=== PATIENT | female | born 2000 | race Caucasian/White ===

== ENCOUNTER 2024-12-29 22:00 | Emergency (ER) | payer BC, SELFPAY ==
[2024-12-29 22:05] VITALS: BP 113/70
[2024-12-29 22:42] LABS: Hematocrit 30.4 % (37.0-47.0); Hemoglobin 9.4 g/dL (12.0-16.0); Mean Corp Hgb Conc. 30.9 g/dL (33.0-37.0); Mean Corpuscular Volume 77.6 fL (81.0-99.0); Nucleated Red Blood Cells % 0 %; Platelet Count 311 10^3/uL (130-400); Red Cell Dist. Width 17.7 % (11.5-14.5)
[2024-12-29 23:02] LABS: Urine Character Slightly Cloudy (Clear)
[2024-12-29 23:15] LABS: ALT (SGPT) 13 U/L (0-35); AST (SGOT) 20 U/L (14-36); Albumin 4.1 g/dl (3.5-5.0); Alkaline Phosphatase 44 U/L (38-126); Blood Urea Nitrogen 15 mg/dl (7-17); Calcium 9.0 mg/dl (8.4-10.2); Carbon Dioxide 30 mmol/L (22-30); Chloride 108 mmol/L (98-107); Glucose 80 mg/dl (70-99); Lipase 183 U/L (23-300); Potassium 4.6 mmol/L (3.5-5.1); Sodium 140 mmol/L (135-145); Total Protein 7.0 g/dl (6.3-8.2); eGFR > 60.00
[2024-12-30 01:13] LABS: HCG, Serum Qualitative Screen Negative
--- NOTE | 2024-12-30 01:32 | ED.GENMED ---
History of Present Illness
General
Chief Complaint: Abdominal Pain
Source: patient
Exam Limitations: none
Time Seen by Provider: 12/30/24 00:50
Nursing documentation reviewed up to this point in time: agreed with
History of Present Illness
History of Present Illness:
This is a 24-year-old female with history of presumed iron deficiency anemia. She presents with frequent epigastric abdominal pain that is worse with fasting state. Temporized with meals and temporized with [place].
Epigastric abdominal pain began this morning, mildly improved with meals but then returned and was not improved with a dose of [place], not improved with Pepto-Bismol. She is also noted some periumbilical abdominal pain today that has been
persistent throughout the day, somewhat worse tonight but now seems mildly improved. No prior history of similar periumbilical pain. She denies back pain or flank pain. No fever no chills.
She admits to mild nausea today but has had no vomiting. Normal bowel movement yesterday. Denies diarrhea. Denies black or tarry stools. Denies bloody stools.
She admits to moderate caffeine consumption. Denies alcohol use. Denies NSAID or aspirin use.
Last menstrual period 2 to 3 weeks ago, normal and on time. Admits to moderately heavy menstrual flow the first 3 days, menstrual period generally resolves within 5 to 6 days.
She admits to occasional dysuria, denies frequency nor urgency nor hematuria.
Her only medication is [id number]-jzldlfp iron which she admits she is frequently noncompliant with.
Past History
Past History
ED Past Medical History: Other (Anemia, presumed iron deficiency.)
ED Past Surgical History: None
Social History
Tobacco: Non-smoker
Alcohol: None
Drug: None
Personal: Single
Living: with family
Employment: Not employed
Family History
Family History: Other (Noncontributory)
Phy Exam
Physical Exam
Physical Exam:
GENERAL: 24-year-old female appears her stated age, bright and alert, pleasant, appears in no acute distress. Father is accompanying.
EYE: pupils equal and reactive. anicteric
NECK: Supple, nontender, no meningismus, no significant adenopathy.
ENT: oral mucosa is moist. No rhinorrhea.
CARDIAC: Regular rate and rhythm. no murmur.
LUNGS: Clear breath sounds bilaterally, no acute respiratory distress, no wheezes/rales/rhonchi
ABDOMEN: Soft, nondistended, minimal tenderness with deep palpation only to the epigastric region, mild to moderate tenderness periumbilical region. No r/g, no cvat. normoactive BS. No palpable masses.
NEUROLOGICAL: Alert and oriented x3, no focal neuro deficits. Gait is parker and steady.
SKIN: Warm and dry, normal color, skin intact. No rash.
MUSCULOSKELETAL: No C/C/E. peripheral pulses are full and equal b/l. No palpable tenderness.
PSYCH: Normal and appropriate interaction.
Course
Orders/Labs/Results
Orders:
Orders
12/29/24 22:23
Complete Blood Count/With Diff Urgent
Comprehensive Metabolic Panel Urgent
HCG, Serum Qualitative Screen Urgent
Comment: ADD ON
Lipase Urgent
Urine Reflex Culture from [facility] [Urinalysis Reflex To Culture] Urgent
Date Specimen was Collected: 12/29/24
Time Specimen was Collected: 22:09
12/30/24 00:52
Add On- LAB Urgent
Tests Added?: serum qual HCG
12/30/24 01:31
Pantoprazole [Protonix IV] 40 mg IV NOW STA
12/30/24 01:32
CT Abd/pelvis W Iv Cont Urgent
Comment:
Reason For Exam: periumbilical abdominal pain, nausea
Abnormal Lab Results
12/29/24
22:23
RBC 3.92 L 10^6/uL
(4.20-5.40)
Hgb 9.4 L g/dL
(12.0-16.0)
Hct 30.4 L %
(37.0-47.0)
MCV 77.6 L fL
(81.0-99.0)
MCH 24.0 L pg
(27.0-31.0)
MCHC 30.9 L g/dL
(33.0-37.0)
RDW 17.7 H %
(11.5-14.5)
Absolute Monos (auto) 0.7 H 10^3/uL
(0.1-0.6)
Monocytes % 10.3 H %
(1.7-9.3)
Chloride 108 H mmol/L
(98-107)
12/29/24 22:23
12/29/24 22:23
Vital Signs
Initial and Last Documented VS:
Initial Vital Signs
Temp Pulse Resp BP Pulse Ox
98.0 F 56 20 113/70 99
12/29/24 22:05 12/29/24 22:05 12/29/24 22:05 12/29/24 22:05 12/29/24 22:05
Last Documented Vital Signs
Temp Pulse Resp BP Pulse Ox
98.0 F 56 20 109/65 99
12/29/24 22:05 12/29/24 22:05 12/29/24 22:05 12/30/24 01:56 12/30/24 01:56
MDM/Problems Addressed
Differential Diagnosis Includes:
Concern for acute gastritis, peptic ulcer disease. Other consideration is pancreatitis, biliary colic, gastroenteritis, constipation.
With newer onset of periumbilical pain, must consider appendicitis, ovarian cyst, ectopic , UTI.
Overall well in appearance. Reassuring that pain is improving.
Labs thus far show mild anemia, microcytic indices which may indicate iron deficiency anemia but other consideration is Mediterranean anemia/beta thalassemia.
Chemistries are unremarkable including normal LFTs, normal lipase.
hCG has been added which is negative.
Urinalysis is unremarkable.
Due to concern for potential early appendicitis will check CT abdomen and pelvis.
Due to concern for gastritis, will give an IV dose of Protonix.
*Radiology
Radiology exam reviewed: radiology read reviewed
*Pulse Oximetry
SaO2: 99
Oxygen Mode of Delivery: Room air
Patient hypoxic: no
*Critical Care Note
Total Time (30-74mins, 75-104mins- exclusive of procedures): Not Applicable
Update Note
Update Note:
03:40
CT is unremarkable save for moderate colonic stool volume consistent with constipation.
Patient continues to appear comfortable.
I suspect an element of gastritis as cause for epigastric abdominal discomfort that improves with meals. As such we will start a course of daily Protonix. Recommend she avoid all caffeinated beverages, avoid alcoholic beverages, avoid NSAIDs.
I suspect her periumbilical abdominal discomfort is constipation in nature and recommend she stay well-hydrated on a daily basis, add fiber rich foods. Recommend initiation of a daily added fiber supplement such as Metamucil versus daily MiraLAX.
Prompt follow-up with PCP for recheck and for follow-up chronic microcytic anemia.
ED Attending Note
-
Portions of this chart may have been created with voice recognition software.� Occasional wrong word or��sound alike� substitutions may have occurred due to the inherent limitations of voice recognition software.
Discharge Plan
Departure
Patient Disposition: Home (Routine Discharge)
Date of Disposition: 12/30/24
Time of Disposition: 03:41
Patient with high blood pressure during this ER visit?: No
Condition: Good
Discharge Problem:
Acute gastritis, Constipation, History of microcytic hypochromic anemia
Instructions: Gastritis, Constipation, Adult (DC)
Prescriptions:
New
pantoprazole [Protonix] 40 mg tablet,delayed release (DR/EC)
40 mg PO DAILY Qty: 30 1RF
Referrals:
Marquita De Los Santos CRNP [Family Provider, General] - Call in 1-3 days for appt
Interventions
Interventions:
*Risk Screen - Suicide Last Done: 12/30/24 01:49
*General Assessment Last Done: 12/29/24 22:05
*Neglect/Abuse Screening Last Done: 12/30/24 01:49
*ED- Fall Risk Assessment Last Done: 12/30/24 01:49
*ED COVID-19 Vaccine History Last Done: 12/30/24 01:49
RV-Pyhgvf-Fifhjozlvb Assessment Last Done: 12/30/24 01:49
Discharge Date and Time
Print Language: PORTUGUESE
[2024-12-30] MEDS: PROTONIX IV 40 MG IV (01:44)
[2024-12-30 01:48] VITALS: BMI 22.2
[2024-12-30 01:55] VITALS: BP 109/65
[2024-12-30 01:56] VITALS: BP 109/65
== END 2024-12-30 03:56 | disposition home or self-care (01) ==
LOC: EMR 22:00
PROVIDERS: Emergency Medicine; EMERGENCY PHYSICIAN Emergency Medicine; FAMILY PHYSICIAN Registered Nurse
DX: K29.00 Acute gastritis without bleeding (principal); K59.00 Constipation, unspecified; D50.9 Iron deficiency anemia, unspecified
CPT/HCPCS: 96374; 99284; 74177; 80053; 81003; 83690; 84703; 85025; Q9967